=== PATIENT | female | born 1945 | race Caucasian/White ===

== ENCOUNTER 2023-09-19 11:48 | Inpatient (IN) | payer MEDICARE, OTHER ==
[~2023-09-19] VITALS: Ht 162.6 cm; Wt 81.7 kg
[2023-09-19] MEDS ORDERED: MORPHINE SULFATE 4 MG/ML SYR/VIAL IV ONE (12:30)
[2023-09-19] MEDS ORDERED: ONDANSETRON HCL 4 MG/2 ML VIAL IV ONE (12:30)
[2023-09-19 12:58] LABS: Basophils # (auto) 0 10 ^3/uL (0-0.2); Basophils % (auto) 0.4 % (0.0-2.0); Eosinophils # (auto) 0 10 ^3/uL (0-0.8); Eosinophils % (auto) 0.1 % (0.0-7.0); Hemoglobin 12.6 g/dL (12.2-16.2); Lymphocytes # (auto) 1.9 10 ^3/uL (0.4-5.4); Lymphocytes % (auto) 17.1 % (10.0-50.0); Mean Corpuscular Hemoglobin 28.8 pg (28.0-32.0); Mean Corpuscular Hgb Conc. 33.1 g/dL (32.0-36.0); Mean Corpuscular Volume 86.9 fL (80.0-100.0); Monocytes # (auto) 1.1 10 ^3/uL (0-1.3); Monocytes % (auto) 9.7 % (0.0-12.0); Neutrophils % (auto) 72.7 % (37.0-80.0); Red Blood Cells 4.37 10^6/uL (4.0-5.20); Red Cell Distribution Width 14.4 % (11.8-14.3); White Blood Cell 10.9 10^3/uL (4.4-10.8)
[2023-09-19 13:19] LABS: Alanine Aminotransferase 15 U/L (7-40); Albumin 4.2 g/dL (3.2-4.8); Alkaline Phosphatase 117 U/L (46-116); Anion Gap 10 (5-15); Aspartate Aminotransferase 25 U/L (13-40); BUN/Creatinine Ratio 16.3 (10.0-20.0); Bilirubin, Total 0.6 mg/dL (0.2-1.0); Blood Urea Nitrogen 15 mg/dL (9-23); Calcium 9.1 mg/dL (8.5-10.1); Carbon Dioxide 24 mmol/L (20-30); Chloride 105 mmol/L (98-107); Glucose 96 mg/dL (74-106); Potassium 4.1 mmol/L (3.5-5.1); Sodium 139 mmol/L (136-145); Total Protein 6.1 g/dL (5.7-8.2)
[2023-09-19] MEDS ORDERED: ACETAMINOPHEN 325 MG TAB PO PRN (14:30)
[2023-09-19] MEDS ORDERED: NITROGLYCERIN 0.4 MG SL TAB SL PRN (14:30)
[2023-09-19] MEDS ORDERED: MORPHINE SULFATE INJ 2 MG/ml SYRG IV PRN ×2 (14:30)
[2023-09-19] MEDS ORDERED: HYDROcodone-ACET 5/325MG TAB PO PRN (14:30)
[2023-09-19 14:48] LABS: Urine Bacteria NONE SEEN /hpf (None Seen); Urine Blood Negative /uL (Negative); Urine Clarity Clear (Clear); Urine Color Yellow (Yellow); Urine Mucus FEW (None Seen); Urine Protein, UAD Negative (Negative); Urine Specific Gravity 1.015 (1.001-1.035); Urine Urobilinogen Normal (Negative); Urine WBC <1 /hpf (0 - 5)
[2023-09-19 15:45] LABS: INR 1.01 (0.9-1.15); Prothrombin Time 10.6 sec (9.3-11.8)
[2023-09-19] MEDS: amLODIPine BESYLATE 5 MG TAB PO SCH (16:08)
[2023-09-19 16:34] LABS: LDL Cholesterol 84 mg/dL (< 100); Triglycerides 63 mg/dL (< 150)
[2023-09-19 16:36] LABS: Cholesterol 148 mg/dL (< 200); HDL Cholesterol 51 mg/dL (40-59)
[2023-09-19 18:40] VITALS: PULSE 79; RESP 20; O2SAT 96
[2023-09-19 19:30] VITALS: PULSE 102; RESP 20; O2SAT 92
[2023-09-19] MEDS: hydrALAZINE HCL 20 MG/ML VL IV PRN (19:55)
[2023-09-20] VITALS (9 sets, daily range): BP systolic 123–166; BP diastolic 63–89; PULSE 85–101; RESP 17–20; TEMP 98–98.5; O2SAT 92–99
[2023-09-20 07:11] LABS: Basophils # (auto) 0.1 10 ^3/uL (0-0.2); Basophils % (auto) 0.6 % (0.0-2.0); Eosinophils # (auto) 0.1 10 ^3/uL (0-0.8); Eosinophils % (auto) 0.5 % (0.0-7.0); Hematocrit 35.8 % (36.0-46.0); Hemoglobin 12.1 g/dL (12.2-16.2); Lymphocytes # (auto) 1.8 10 ^3/uL (0.4-5.4); Lymphocytes % (auto) 18.2 % (10.0-50.0); Mean Corpuscular Hemoglobin 28.9 pg (28.0-32.0); Mean Corpuscular Hgb Conc. 33.7 g/dL (32.0-36.0); Mean Corpuscular Volume 85.9 fL (80.0-100.0); Monocytes % (auto) 10.3 % (0.0-12.0); Neutrophils % (auto) 70.4 % (37.0-80.0); Red Blood Cells 4.17 10^6/uL (4.0-5.20); Red Cell Distribution Width 14.4 % (11.8-14.3)
[2023-09-20 08:21] LABS: Alanine Aminotransferase 12 U/L (7-40); Albumin 3.8 g/dL (3.2-4.8); Alkaline Phosphatase 104 U/L (46-116); Anion Gap 6 (5-15); Aspartate Aminotransferase 18 U/L (13-40); Bilirubin, Total 0.5 mg/dL (0.2-1.0); Blood Urea Nitrogen 16 mg/dL (9-23); Calcium 8.7 mg/dL (8.5-10.1); Carbon Dioxide 27 mmol/L (20-30); Chloride 106 mmol/L (98-107); Glucose 101 mg/dL (74-106); Potassium 4.2 mmol/L (3.5-5.1); Sodium 139 mmol/L (136-145); Total Protein 5.5 g/dL (5.7-8.2)
[2023-09-20] MEDS: amLODIPine BESYLATE 5 MG TAB PO SCH (08:56)
[2023-09-20 09:07] LABS: Cancer Antigen (CA) 125 24.9 U/mL (0.0-38.1)
[2023-09-20] MEDS ORDERED: ENOXAPARIN SOD 40 MG/0.4 ML SYRINGE SC SCH (10:00)
[2023-09-20] MEDS ORDERED: TRANEXAMIC ACID 20 ML ONE (11:29)
[2023-09-20] MEDS ORDERED: VANCOMYCIN HCL 1000 MG VL ONE (11:30)
[2023-09-20] MEDS ORDERED: ceFAZolin 2 GM/D5W100ml 100 ML IV ONE (11:39)
[2023-09-20] MEDS ORDERED: TETRACAINE 1% INJ 2 ML VIAL IJ ONE (11:56)
[2023-09-20] MEDS ORDERED: fentaNYL CITRATE 100 MCG/2 ML VL ONE (12:06)
[2023-09-20] MEDS ORDERED: MORPHINE SULF PF 5 MG/10 ML VIAL ONE (12:06)
[2023-09-20] MEDS ORDERED: MIDAZOLAM HCL 2MG/2ML 2ml VIAL (1mg/ml) ONE (12:06)
[2023-09-20] MEDS ORDERED: ePHEDrine SULFATE 50 MG/ML AMP IV PRN (13:45)
[2023-09-20] MEDS ORDERED: HYDROmorphone HCL 2 MG/ML VL/or syr IV PRN ×3 (13:45→14:30)
[2023-09-20] MEDS ORDERED: MORPHINE SULFATE 4 MG/ML SYR/VIAL IV PRN (13:45)
[2023-09-20] MEDS ORDERED: NALOXONE HCL 0.4 MG/ML VIAL IV PRN (13:45)
[2023-09-20] MEDS ORDERED: LABETALOL HCL 5 MG/ML 4ML SYRINGE IV PRN (13:45)
[2023-09-20] MEDS ORDERED: ONDANSETRON HCL 4 MG/2 ML VIAL IV PRN ×3 (13:45→14:30)
[2023-09-20] MEDS ORDERED: DexAMETHasone SOD PHOS 10MG/1ML VIAL INJ IV PRN (13:45)
[2023-09-20] MEDS ORDERED: MIDAZOLAM HCL 2MG/2ML 2ml VIAL (1mg/ml) IV PRN (13:45)
[2023-09-20] MEDS ORDERED: PROPOFOL 10 MG/ML 20 ML IV ONE (13:48)
[2023-09-20] MEDS ORDERED: HYDROcodone-ACET 10/325MG TAB PO PRN (14:30)
[2023-09-20] MEDS: LACTATED RINGER'S 1,000 ML IV SCH (14:30)
[2023-09-20] MEDS ORDERED: ACETAMINOPHEN 325 MG TAB PO PRN (14:30)
[2023-09-20] MEDS ORDERED: BISACODYL 5 MG EC TAB PO PRN (14:30)
[2023-09-20] MEDS ORDERED: HYDROcodone-ACET 5/325MG TAB PO PRN (14:30)
[2023-09-20] MEDS ORDERED: OXYCODONE W/ ACETAMINOPHEN 5/325MG TABLET PO PRN (14:30)
[2023-09-20] MEDS: LOSARTAN POTASSIUM 50 MG TAB PO SCH (15:42)
[2023-09-20] MEDS: ceFAZolin 1GM/50ML 50 ML IV SCH ×2 (15:44→20:42)
[2023-09-20] MEDS ORDERED: PHENYLEPHRINE HCL 10 MG/ML VL IV ONE (16:44)
[2023-09-20] MEDS ORDERED: DexAMETHasone SOD PHOS 10MG/1ML VIAL INJ IV ONE (16:44)
[2023-09-20] MEDS: hydrALAZINE HCL 20 MG/ML VL IV PRN (17:05)
[2023-09-20] MEDS: DOCUSATE SOD 100 MG CAP PO SCH (21:45)
[2023-09-20] MEDS: ENOXAPARIN SOD 30 MG/0.3 ML SYRINGE SC SCH (21:46)
[2023-09-20] MEDS: HYDROcodone-ACET 10/325MG TAB PO PRN (21:52)
[2023-09-21] VITALS (7 sets, daily range): BP systolic 129–155; BP diastolic 57–79; PULSE 82–101; RESP 18–20; TEMP 97.7–98.9; O2SAT 93–94
[2023-09-21] MEDS: LACTATED RINGER'S 1,000 ML IV SCH ×3 (00:30→20:30)
[2023-09-21] MEDS: ceFAZolin 1GM/50ML 50 ML IV SCH (03:05)
[2023-09-21] MEDS: HYDROcodone-ACET 10/325MG TAB PO PRN ×3 (04:16→21:32)
[2023-09-21 06:31] LABS: Basophils # (auto) 0 10 ^3/uL (0-0.2); Basophils % (auto) 0.1 % (0.0-2.0); Eosinophils # (auto) 0 10 ^3/uL (0-0.8); Hematocrit 33.5 % (36.0-46.0); Lymphocytes # (auto) 1.1 10 ^3/uL (0.4-5.4); Lymphocytes % (auto) 8.4 % (10.0-50.0); Mean Corpuscular Hgb Conc. 32.9 g/dL (32.0-36.0); Mean Corpuscular Volume 88.1 fL (80.0-100.0); Monocytes # (auto) 1.3 10 ^3/uL (0-1.3); Monocytes % (auto) 10.6 % (0.0-12.0); Neutrophils # (auto) 10.3 10 ^3/uL (1.6-8.6); Neutrophils % (auto) 80.9 % (37.0-80.0); Red Blood Cells 3.81 10^6/uL (4.0-5.20); Red Cell Distribution Width 14.6 % (11.8-14.3); White Blood Cell 12.7 10^3/uL (4.4-10.8)
[2023-09-21 06:49] LABS: Alanine Aminotransferase 17 U/L (7-40); Albumin 3.6 g/dL (3.2-4.8); Alkaline Phosphatase 88 U/L (46-116); Anion Gap 9 (5-15); Aspartate Aminotransferase 33 U/L (13-40); BUN/Creatinine Ratio 18.7 (10.0-20.0); Bilirubin, Total 0.4 mg/dL (0.2-1.0); Blood Urea Nitrogen 14 mg/dL (9-23); Calcium 8.7 mg/dL (8.5-10.1); Carbon Dioxide 23 mmol/L (20-30); Chloride 102 mmol/L (98-107); Glucose 141 mg/dL (74-106); Potassium 4.3 mmol/L (3.5-5.1); Sodium 134 mmol/L (136-145); Total Protein 5.5 g/dL (5.7-8.2)
[2023-09-21] MEDS: DOCUSATE SOD 100 MG CAP PO SCH ×2 (08:48→21:30)
[2023-09-21] MEDS: LOSARTAN POTASSIUM 50 MG TAB PO SCH (08:49)
[2023-09-21] MEDS: ENOXAPARIN SOD 30 MG/0.3 ML SYRINGE SC SCH ×2 (08:50→21:30)
[2023-09-21] MEDS: hydrALAZINE HCL 20 MG/ML VL IV PRN (15:39)
[2023-09-22 05:00] VITALS: BP 133/65; PULSE 91; RESP 20; TEMP 98.4; O2SAT 93
[2023-09-22 05:44] LABS: Chloride 103 mmol/L (98-107); Potassium 4.1 mmol/L (3.5-5.1); Sodium 135 mmol/L (136-145)
[2023-09-22 05:45] LABS: Anion Gap 7 (5-15); Carbon Dioxide 25 mmol/L (20-30)
[2023-09-22 05:46] LABS: Calcium 8.2 mg/dL (8.7-10.4)
[2023-09-22 05:50] LABS: Glucose 101 mg/dL (74-106)
[2023-09-22 05:51] LABS: BUN/Creatinine Ratio 25.3 (10.0-20.0)
[2023-09-22 06:07] LABS: Basophils # (auto) 0 10 ^3/uL (0-0.2); Basophils % (auto) 0.3 % (0.0-2.0); Eosinophils # (auto) 0 10 ^3/uL (0-0.8); Eosinophils % (auto) 0.4 % (0.0-7.0); Hematocrit 31.3 % (36.0-46.0); Hemoglobin 10.4 g/dL (12.2-16.2); Lymphocytes # (auto) 1.8 10 ^3/uL (0.4-5.4); Lymphocytes % (auto) 19.3 % (10.0-50.0); Mean Corpuscular Hemoglobin 28.8 pg (28.0-32.0); Mean Corpuscular Hgb Conc. 33.2 g/dL (32.0-36.0); Mean Corpuscular Volume 86.8 fL (80.0-100.0); Monocytes # (auto) 1.3 10 ^3/uL (0-1.3); Monocytes % (auto) 14.1 % (0.0-12.0); Neutrophils # (auto) 6.1 10 ^3/uL (1.6-8.6); Neutrophils % (auto) 65.9 % (37.0-80.0); Red Blood Cells 3.61 10^6/uL (4.0-5.20); Red Cell Distribution Width 14.5 % (11.8-14.3); White Blood Cell 9.2 10^3/uL (4.4-10.8)
[2023-09-22] MEDS: LACTATED RINGER'S 1,000 ML IV SCH ×2 (06:30→16:30)
[2023-09-22 06:46] LABS: Blood Urea Nitrogen 25 mg/dL (9-23)
[2023-09-22 08:00] VITALS: BP 142/66; PULSE 63; PULSE 97; RESP 16; TEMP 98.7; O2SAT 93
[2023-09-22] MEDS ORDERED: HYDR-4798 PO (09:50)
[2023-09-22] MEDS ORDERED: ACET-1882 PO (09:50)
[2023-09-22] MEDS ORDERED: LOSA50TA46 PO (09:50)
[2023-09-22] MEDS ORDERED: BISA-65 PO (09:50)
[2023-09-22] MEDS ORDERED: ENO30SY SC (09:50)
[2023-09-22] MEDS: LOSARTAN POTASSIUM 50 MG TAB PO SCH ×2 (10:00→10:54)
[2023-09-22] MEDS: DOCUSATE SOD 100 MG CAP PO SCH (10:54)
[2023-09-22] MEDS: ENOXAPARIN SOD 30 MG/0.3 ML SYRINGE SC SCH (10:55)
[2023-09-22 13:00] VITALS: BP 109/49; PULSE 99; RESP 18; TEMP 98.6; O2SAT 94
[2023-09-22 14:41] VITALS: BP 124/66; PULSE 63; RESP 16; TEMP 37; O2SAT 93
[2023-09-22 16:52] VITALS: BP 120/51; PULSE 107; RESP 19; TEMP 99.4; O2SAT 93
== END 2023-09-22 16:45 | DRG 522 ==
LOC: EDBD 11:48 → ER 11:48 → OVERFLOW 14:33 → WEST WING 23:27 → TELE-WESTW 09-20 16:42
PROVIDERS: ADMIT Orthopaedic Surgery; ATTEND Student in an Organized Health Care Education/Training Program
PROC: 0SR90J9 Replacement of Right Hip Joint with Synthetic Substitute, Cemented, Open Approach (ICD-10-PCS; principal; 2023-09-20 12:06)
DX: M84.451A Pathological fracture, right femur, initial encounter for fracture (principal); I50.9 Heart failure, unspecified; I16.0 Hypertensive urgency; N63.10 Unspecified lump in the right breast, unspecified quadrant; W18.39XA Other fall on same level, initial encounter; Y93.01 Activity, walking, marching and hiking; Y92.098 Other place in other non-institutional residence as the place of occurrence of the external cause; Z80.0 Family history of malignant neoplasm of digestive organs; Z85.3 Personal history of malignant neoplasm of breast; Z98.51 Tubal ligation status; Y99.8 Other external cause status; R06.03 Acute respiratory distress
CPT/HCPCS: 36415; 71045; 72170; 74176; 80048; 80053; 80061; 81001; 82378; 83880; 84484; 85025; 85610; 85730; 86301; 86304; 86850; 86900; 86901; 93306; 96374; 96375; 97163; G0378; J0690; J1100; J2250; J2405; J2704